=== PATIENT | male | born 1960 | race Caucasian/White ===

== ENCOUNTER 2024-07-08 08:39 | Day surgery (SDC) | payer MEDICARE, BC, OTHER ==
--- NOTE | 2024-07-06 18:06 | HP ---
HISTORY AND PHYSICAL HISTORY OF PRESENT ILLNESS: The patient is a 64-year-old, presents with colonoscopy 10 years ago. He thinks he had some polyps. He denies family history of any colon cancer. He has no colon complaints at this time. PAST MEDICAL HISTORY: Diabetes, hypertension, hyperlipidemia, thyroid. HOME MEDICATIONS: Atorvastatin, levothyroxine, losartan, metformin, omeprazole, Farxiga. ALLERGIES: Penicillin. PAST SURGICAL HISTORY: Achilles heel repair. SOCIAL HISTORY: Negative. FAMILY HISTORY: ALS. REVIEW OF SYSTEMS: CONSTITUTIONAL: Denies fever or chills. CHEST: Denies shortness of breath. CARDIOVASCULAR: Denies chest pain. ABDOMEN: Denies abdominal pain. PHYSICAL EXAMINATION: GENERAL: No acute distress. CARDIOVASCULAR: Regular rate and rhythm. RESPIRATORY: Nonlabored. No shortness of breath. ABDOMEN: Soft. IMPRESSION: Screening, history of polyps. PLAN: Colonoscopy with Dr. Renny Gusman. This report was dictated for Dr. Gusman by Audra Garcia NP.
[2024-07-08 08:54] VITALS: RESP 18
[2024-07-08] MEDS: Lactated Ringers 1,000 ML IV SCH (09:09)
[2024-07-08] MEDS ORDERED: DIPRIVAN 200 MG/20 ML IV ONE ×2 (12:11→12:34)
[2024-07-08] MEDS ORDERED: Xylocaine-Mpf 2% 5 Ml Vial ONE (12:11)
[2024-07-08] MEDS ORDERED: Versed 2 MG/2 ML Injection ONE (12:11)
[2024-07-08] MEDS ORDERED: GlucaGen 1 MG ONE (12:48)
[2024-07-08 13:16] VITALS: O2SAT 97
[2024-07-08 13:23] VITALS: BP 115/69; PULSE 66; TEMP 97
--- NOTE | 2024-07-09 18:05 | OP ---
SURGERY DATE/TIME: 07/08/2024 [id number] PREOPERATIVE DIAGNOSIS: Screening. POSTOPERATIVE DIAGNOSIS: Multiple polyps. 1) A 1 cm flexible sigmoid polyp taken with a hot biopsy forceps at 40 cm. 2) A 1 cm mid ascending colon polyp taken with a hot biceps forceps. 3) A 3 to 4 cm polyp anteriorly, anteriorly located at the proximal hepatic flexure taken with a hot biopsy forceps, taken with a hot snare, 2 clips were applied and methylene blue was placed just at the front edge of the colon away from the anterior lesion. PROCEDURE: Colonoscopic examination completed to the cecum with visualization of a cecal cancer. SURGEON: Renny Gusman MD UNITIZER: Gokul Gonzales Med Student III ANESTHESIA: General. COMPLICATIONS: None. CONDITION: Stable. DESCRIPTION OF PROCEDURE AND FINDINGS: Patient was taken to endoscopy. Anal digital examination was satisfactory. Tone was satisfactory. Moderate internal hemorrhoids. Scope advanced to the cecum. Base of the cecum normal. Appendiceal orifice area normal. Ileocecal valve cannulated for 3 inches was normal. The whole base of cecum was normal. Coming back about 2 inches, 1 cm polyp taken with a hot biopsy forceps to extinction. Coming back 6 to 7 inches, looked like right at the edge of hepatic flexure was a 3 cm anterior, anterior lesion, was taken with about 8 applications of hot biopsy forceps, 2 or 3 applications of the hot snare. Two clips were applied and methylene blue was placed as noted. On circumferential withdrawal, nothing additional at this point. Patient tolerated the procedure satisfactory. As long as the polyp is not malignant, we will anticipate coming back in 6 months to look at this very atypical large polyp site.
== END 2024-07-08 13:30 | disposition home or self-care (01) ==
LOC: SDC 08:39
PROVIDERS: ATTEND Surgery
DX: Z12.11 Encounter for screening for malignant neoplasm of colon (principal); D12.2 Benign neoplasm of ascending colon; D12.3 Benign neoplasm of transverse colon; D12.5 Benign neoplasm of sigmoid colon; E11.9 Type 2 diabetes mellitus without complications; K64.8 Other hemorrhoids
CPT/HCPCS: 82947; 93005; J1610; J2250; J2704

== ENCOUNTER 2024-12-09 07:55 | Day surgery (SDC) | payer MEDICARE, OTHER ==
--- NOTE | 2024-12-08 13:06 | HP ---
HISTORY AND PHYSICAL HISTORY OF PRESENT ILLNESS: The patient is a 54-year-old male who presents for a followup colonoscopy. He had a colonoscopy a few months ago and patient ended up having a large piecemeal resection of a polyp. He presents for colonoscopy with Dr. Renny Gusman. PAST MEDICAL HISTORY: Diabetes, GERD, hyperlipidemia. ALLERGIES: Penicillin. HOME MEDICATIONS: Thyroid medicines, Farxiga, omeprazole, nebivolol, metformin, Losartan, levothyroxine, atorvastatin. PAST SURGICAL HISTORY: Achilles heel repair. SOCIAL HISTORY: Negative. FAMILY HISTORY: ALS. REVIEW OF SYSTEMS: CONSTITUTIONAL: Denies fever or chills. CHEST: Denies shortness of breath. CARDIOVASCULAR: Denies chest pain. ABDOMEN: Denies abdominal pain. PHYSICAL EXAMINATION: GENERAL: No acute distress. CARDIOVASCULAR: Regular rate and rhythm. RESPIRATORY: Nonlabored. No shortness of breath. ABDOMEN: Soft. IMPRESSION: Short-term followup for a history of large polypectomy with piecemeal removal. PLAN: Colonoscopy with Dr. Renny Gusman. This report was dictated for Dr. Gusman by Audra Garcia NP.
[2024-12-09] MEDS ORDERED: Lactated Ringers 1,000 ML IV ONE (08:07)
[2024-12-09] MEDS: Lactated Ringers 1,000 ML IV SCH (08:10)
[2024-12-09] MEDS ORDERED: Lactated Ringers 1,000 ML IV SCH (08:30)
[2024-12-09] MEDS ORDERED: propofoL IV ONE ×2 (09:56→10:22)
[2024-12-09] MEDS ORDERED: GlucaGen 1 MG ONE (10:06)
[2024-12-09 10:54] VITALS: RESP 16
[2024-12-09 11:06] VITALS: BP 113/67; PULSE 63; TEMP 97.2; O2SAT 98
--- NOTE | 2024-12-10 10:05 | OP ---
SURGERY DATE/TIME: 12/09/2024 [id number] PREOPERATIVE DIAGNOSIS: Post atypical large polyps requiring sooner followup exam. POSTOPERATIVE DIAGNOSIS: Post atypical large polyps requiring sooner followup exam. PROCEDURE: Colonoscopy to cecum, hot polypectomy x4. SURGEON: Renny Gusman MD ANESTHESIA: General. COMPLICATIONS: None. CONDITION: Stable. INDICATIONS: The patient had a colonoscopy a few months ago and had a large sessile atypical polyp in the right colon that is requiring a semi-immediate followup is in 3 months. DESCRIPTION OF PROCEDURE AND FINDINGS: Patient was taken to endoscopy, left lateral decubitus position. Excellent prep was present. Scope introduced. Scope advanced to the cecum. Ileocecal valve and appendiceal orifice well defined and were normal. Base of the cecum normal. Coming back, there was a 6 mm polyp taken with hot biopsy forceps. Coming back to the hepatic flexure, there was a 1 cm slightly sessile area taken with hot biopsy forceps. I believe this was close to where the old larger polyp had been. Down the sigmoid, there was a 6 mm taken with hot biopsy forceps, and in the rectum, there was an 8 mm taken with hot biopsy forceps. Four different containers. The previous sessile on a ridge polyp in the right colon was basically absent. IMPRESSION: Successful followup. Nothing of major concern here. We will put him on a 3-year schedule.
== END 2024-12-09 11:17 | disposition home or self-care (01) ==
LOC: SDC 07:55
PROVIDERS: ATTEND Surgery
DX: D12.2 Benign neoplasm of ascending colon (principal); D12.3 Benign neoplasm of transverse colon; D12.5 Benign neoplasm of sigmoid colon; E11.9 Type 2 diabetes mellitus without complications
CPT/HCPCS: 82947; J1610; J2704